=== PATIENT | male | born 1975 | race Caucasian/White ===

== ENCOUNTER 2017-04-21 17:17 | Emergency (ER) | payer BC ==
[2017-04-21] MEDS ORDERED: Bacitracin/Neomycin/Polymyxin B Oint 0.9 GM U/D Packet TOP ONE (18:00)
[2017-04-21] MEDS ORDERED: Lidocaine 1% 20 ML MDV INJECT ONE (18:00)
[2017-04-21] MEDS ORDERED: Lidocaine 2% 5 ML SDV INJECT ONE (18:00)
[2017-04-21] MEDS ORDERED: Lidocaine 2% 5 ML SDV ONE (18:02)
[2017-04-21] MEDS ORDERED: Lidocaine 1% 20 ML MDV ONE (18:03)
[2017-04-21] MEDS ORDERED: Bacitracin/Neomycin/Polymyxin B Oint 0.9 GM U/D Packet ONE (18:38)
--- NOTE | 2017-04-21 19:27 | EDM.PDOC ---
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 Tetanus is only one year ago he says. No other injuries. Treatments X [employer]MENT REPA[employer]ER: Reports: Dressing(s) Right Hand Pain Score (Numeric/FACES): 2 - Related Data Allergies Allergy/AdvReac Type Severity Reaction Status Date / Time No Known Drug Allergies Allergy Cannot Verified 04/21/17 17:31 Remember Home Meds: Home Meds . [No Known Home Meds] 04/21/17 [History] Past Medical History HEENT History: Reports: Impaired Vision Cardiovascular History: Reports: High Cholesterol, Hypertension Respiratory History: Reports: None Gastrointestinal History: Reports: None Genitourinary History: Reports: None Musculoskeletal History: Reports: Fracture Neurological History: Reports: None Psychiatric History: Reports: None Endocrine/Metabolic History: Reports: None Dermatologic History: Reports: None - Infectious Disease History Infectious Disease History: Reports: None - Past Surgical History HEENT Surgical History: Reports: None Cardiovascular Surgical History: Reports: None Respiratory Surgical History: Reports: None GI Surgical History: Reports: None Male Surgical History: Reports: None Endocrine Surgical History: Reports: None Neurological Surgical History: Reports: None Musculoskeletal Surgical History: Reports: None Dermatological Surgical History: Reports: None Social & Family History - Tobacco Use Smoking Status *Q: Current Every Day Smoker Years of Tobacco use: 23 Packs/Tins Daily: 1 Second Hand Smoke Exposure: No - Caffeine Use Caffeine Use: Reports: Coffee, Soda, Tea - Alcohol Use Days Per Week of Alcohol Use: 1 Number of Drinks Per Day: 6 Total Drinks Per Week: 6 - Recreational Drug Use Recreational Drug Use: No Review of Systems - Review of Systems Review Of Systems: ROS reveals no pertinent complaints other than HPI. ED EXAM, GENERAL - Physical Exam Exam: See Below Exam Limited By: No Limitations General Appearance: Alert, WD/WN, No Apparent Distress Eye Exam: Bilateral Eye: EOMI, Normal Inspection, PERRL Ears: Normal External Exam, Hearing Grossly Normal Nose: Normal Inspection, No Blood Throat/Mouth: Normal Lips, Normal Voice, No Airway Compromise Head: Atraumatic, Normocephalic Neck: Full Range of Motion Respiratory/Chest: No Respiratory Distress, Lungs Clear, Normal Breath Sounds, No Accessory Muscle Use Cardiovascular: Regular Rate, Rhythm, No Murmur Extremities: Normal Range of Motion, Other (Right index finger middle phalanx has an extensive jagged, irregular laceration that is quite superficial. CMS is completely intact throughout. ) ED TRAUMA EXTREMITY PROCEDURES - Laceration/Wound Repair Right Anterior Lateral Finger Lac/Wound Length In cm: 6 Appearance: Subcutaneous, Irregular, Mildly Contaminated Distal NVT: Neuro & Vascular Intact, No Tendon Injury Anesthetic Type: Digital Local Anesthesia - Lidocaine (Xylocaine): 2% Plain Local Anesthetic Volume: 5cc Skin Prep: Chlorhexidine (Hibiciens) (30 minute soak) Saline Irrigation (cc's): 250 Exploration/Debridement/Repair: Wound Explored, Explored to Base, Minimal Debridement Closed With: Sutures Suture Size: other (5-0) # of Sutures: 28 Suture Type: Nylon, Interrupted, Simple Sterile Dressing Applied: Provider Tetanus Status Addressed: Yes Complications: No Course - Vital Signs Last Recorded V/S: Last Vital Signs Temp 97.1 F 04/21/17 17:18 Pulse 81 04/21/17 17:18 Resp 18 04/21/17 17:18 BP 191/95 H 04/21/17 17:18 Pulse Ox 99 04/21/17 17:18 - Orders/Labs/Meds Orders: Active Orders 24 hr Category Date Time Status Hand Comp Min 3V Rt [CR] Stat Exams 04/21/17 17:32 Taken Meds: Medications Discontinued Medications Generic Name Dose Route Start Last Admin Trade Name Nick PRN Reason Stop Dose Admin Lidocaine Confirm 04/21/17 18:02 Xylocaine-Mpf 2% Administered 04/21/17 18:03 Dose 5 ml .ROUTE .STK-MED ONE Lidocaine HCl Confirm 04/21/17 18:03 Xylocaine 1% Administered 04/21/17 18:04 Dose 20 ml .ROUTE .STK-MED ONE Neomycin/Polymyxin/Bacitracin Confirm 04/21/17 18:38 Triple Antibiotic Oint Administered 04/21/17 18:39 Dose 1 each .ROUTE .STK-MED ONE - Re-Assessments/Exams Free Text/Narrative Re-Assessment/Exam: 04/21/17 20:23 Suture procedure as described. Xrays show no fractures or dislocations. Discussed findings, expectations and treatment plan with patient and his . Patient discharged in stable condition. Departure - Departure Time of Disposition: 19:22 Disposition: Home, Self-Care 01 Condition: Good Clinical Impression: Finger laceration Qualifiers: Encounter type: initial encounter Finger: index finger Damage to nail status: without damage Foreign body presence: without foreign body Laterality: right Qualified Code(s): S61.210A - Laceration without foreign body of right index finger without damage to nail, initial encounter - Discharge Information Instructions: Crush Injury, Fingers or Toes, [id number] Additional Instructions: 1. Keep wound clean and dry except for washing under fresh water from faucet or shower. 2. Keep tube gauze on for 48 hours then change daily. 3. Take antibiotic as directed. 4. You may use Ibuprofen 600 mg three times a day and/or Tylenol 500 mg three times a day as needed for pain control. 5. Follow up with your PCP in ten days for suture removal or sooner if you notice infection or other signs of worsening. 6. Follow up with your PCP for evaluation of treatment for your blood pressure at that time also. - My Orders Last 24 Hours: My Active Orders 04/21/17 17:32 Hand Comp Min 3V Rt [CR] Stat - Assessment/Plan Last 24 Hours: My Active Orders 04/21/17 17:32 Hand Comp Min 3V Rt [CR] Stat
== END 2017-04-21 19:30 | disposition home or self-care (01) ==
LOC: KA.ED 17:17
DX: S61.210A Laceration without foreign body of right index finger without damage to nail, initial encounter (principal); I10 Essential (primary) hypertension; E78.00 Pure hypercholesterolemia, unspecified; F17.210 Nicotine dependence, cigarettes, uncomplicated; W23.0XXA Caught, crushed, jammed, or pinched between moving objects, initial encounter
CPT/HCPCS: 12002; 73130-RT; 99283